=== PATIENT | female | born 1955 | race Caucasian/White ===

== ENCOUNTER 2016-10-21 16:35 | Emergency (ER) | payer OTHER ==
[~2016-10-21] VITALS: Ht 162.6 cm; Wt 74.4 kg
[2016-10-21 17:12] LABS: HEMATOCRIT 42.3 % (36.0-46.0); MCHC 33.1 G/DL (30.0-36.0); MCV 87.8 FL (83-99); MEAN PLAT.VOLUME 10.4 uM^3 (9.5-12.4); PLATELET COUNT 281 K/uL (156-360); RBC DIS.WIDTH-CV 13.3 % (11.8-14.6); RBC DIS.WIDTH-SD 43.2 % (39-53); RED BLOOD COUNT 4.82 M/uL (3.80-5.20); WHITE BLOOD COUNT 8.8 K/uL (4.1-10.2)
[2016-10-21 17:18] LABS: CHLORIDE 107 mEq/L (99-109); POTASSIUM 3.7 mEq/L (3.7-5.4); SODIUM 142 mEq/L (136-147)
[2016-10-21 17:20] LABS: GLUCOSE 151 mg/dL (70-99)
[2016-10-21 17:21] LABS: ANION GAP 13 MEQ/L (2-14)
[2016-10-21 17:22] LABS: TOTAL BILIRUBIN 0.3 mg/dL (0.0-1.0)
[2016-10-21 17:23] LABS: ALKALINE PHOSPHATASE 131 IU/L (3-129)
[2016-10-21 17:24] LABS: GFR ESTIMATE (CALCULATED) 53 mL/min/
[2016-10-21 17:25] LABS: UREA NITROGEN (BUN) 17 mg/dL (9-23)
[2016-10-21 18:00] LABS: ADD MIUA? YES; BILIRUBIN NEGATIVE; BLOOD LARGE; COLOR YELLOW ((YELLOW)); GLUCOSE (STRIP) NEGATIVE; KETONES NEGATIVE; LEUKOCYTES NEGATIVE; NITRITE NEGATIVE; PROTEIN (STRIP) 30; SPECIFIC GRAVITY 1.012 (1.000-1.030); UROBILINOGEN 0.2 MG/DL (0.2-1.0)
[2016-10-21 18:35] LABS: BACTERIA 1+ /HPF; EPITHELIAL CELLS RARE /HPF; MUCUS RARE /LPF; RED BLOOD CELLS TNTC /HPF (0-5); UCUL ADDED? YES; WHITE BLOOD CELLS 0-5 /HPF (0-5)
[2016-10-21] MEDS ORDERED: PERCOCET 5/31 TABLET PO (18:51)
[2016-10-21] MEDS ORDERED: KEFLEX500 MG PO (18:51)
[2016-10-21] MEDS ORDERED: FLOMAX0.4 MG PO (18:51)
[2016-10-21] MEDS ORDERED: ZOFRAN ODT4 MG PO (18:51)
[2016-10-21] MEDS ORDERED: MOTRIN800 MG PO (18:51)
[2016-10-21 19:02] VITALS: BP 120/98
== END 2016-10-21 19:02 | disposition home or self-care (01) ==
LOC: EME 16:35
PROVIDERS: Nurse Practitioner Family
DX: N20.1 Calculus of ureter (principal); K80.20 Calculus of gallbladder without cholecystitis without obstruction; E78.00 Pure hypercholesterolemia, unspecified; E78.5 Hyperlipidemia, unspecified; Z87.891 Personal history of nicotine dependence
CPT/HCPCS: 74177; 80053; 81003; 85027; 87086 GA; 99281; 99284; J1885; J2405; J3010; J7030

== ENCOUNTER 2016-10-28 00:33 | Inpatient (IN) | payer OTHER ==
[~2016-10-28] VITALS: Ht 162.6 cm; Wt 75.2 kg
[~2016-10-28 00:33] MED LIST: FLOMAX0.4 MG PO; KEFLEX500 MG PO; MOTRIN800 MG PO; PERCOCET 5/31 TABLET PO; ZOFRAN ODT4 MG PO
[2016-10-28 01:04] LABS: HEMATOCRIT 37.4 % (36.0-46.0); MCH 29.1 PG (29.0-34.0); MCHC 33.4 G/DL (30.0-36.0); MCV 87.2 FL (83-99); MEAN PLAT.VOLUME 9.8 uM^3 (9.5-12.4); PLATELET COUNT 287 K/uL (156-360); RBC DIS.WIDTH-CV 13.2 % (11.8-14.6); RED BLOOD COUNT 4.29 M/uL (3.80-5.20); WHITE BLOOD COUNT 10.7 K/uL (4.1-10.2)
[2016-10-28 01:11] LABS: CHLORIDE 105 mEq/L (99-109); POTASSIUM 4.1 mEq/L (3.7-5.4); SODIUM 140 mEq/L (136-147)
[2016-10-28 01:13] LABS: GLUCOSE 103 mg/dL (70-99)
[2016-10-28 01:14] LABS: ANION GAP 10 MEQ/L (2-14)
[2016-10-28 01:16] LABS: GFR ESTIMATE (CALCULATED) 28 mL/min/
[2016-10-28 01:17] LABS: UREA NITROGEN (BUN) 22 mg/dL (9-23)
[2016-10-28 01:28] LABS: ADD MIUA? YES; BILIRUBIN NEGATIVE; BLOOD SMALL; COLOR YELLOW ((YELLOW)); GLUCOSE (STRIP) NEGATIVE; KETONES NEGATIVE; LEUKOCYTES NEGATIVE; NITRITE NEGATIVE; PROTEIN (STRIP) 30; SPECIFIC GRAVITY 1.017 (1.000-1.030); UROBILINOGEN 0.2 MG/DL (0.2-1.0)
[2016-10-28 01:34] LABS: BACTERIA NONE SEEN /HPF; EPITHELIAL CELLS RARE /HPF; MUCUS TRACE /LPF; UCUL ADDED? NO; WHITE BLOOD CELLS 0-5 /HPF (0-5)
[2016-10-28 03:03] VITALS: BP 152/72
[2016-10-28 08:45] VITALS: BP 119/63
[2016-10-28 11:46] VITALS: BP 152/80
[2016-10-28 14:55] VITALS: BP 160/78
[2016-10-28] MEDS ORDERED: ZYBAN 150 MG T150 MG PO (17:06)
[2016-10-28] MEDS ORDERED: VENLAFAXINE HC150 MG PO (17:08)
[2016-10-28] MEDS ORDERED: CRESTOR40 MG PO (17:10)
[2016-10-28] MEDS ORDERED: ZETIA10 MG PO (17:17)
[2016-10-28] MEDS ORDERED: VALACYCLOVIR1000 MG PO (17:20)
[2016-10-28] MEDS ORDERED: NEXIUM40 MG PO (17:22)
[2016-10-28] MEDS ORDERED: WELLBUTRIN XL150 MG PO (21:15)
[2016-10-28] MEDS ORDERED: PROTONIX40 MG PO (21:15)
[2016-10-28] MEDS ORDERED: PROAIR HFA8.5 GM IH (21:16)
[2016-10-28] MEDS ORDERED: CENTRUM SILVER1 EAC4 PO (21:16)
[2016-10-28] MEDS ORDERED: LO-DOSE ASPIRIN81 M2 PO (21:17)
[2016-10-28] MEDS ORDERED: PEPCID20 MG PO (21:18)
[2016-10-28] MEDS ORDERED: ZYRTEC10 M3 PO (21:18)
[2016-10-28] MEDS ORDERED: HAIR, SKIN & N1 EAC1 PO (21:19)
[2016-10-28 23:00] VITALS: BP 169/79
[2016-10-29 06:40] LABS: ANION GAP 7 MEQ/L (2-14); CHLORIDE 107 MEQ/L (99-109); GFR ESTIMATE (CALCULATED) 37 mL/min/; GLUCOSE 87 mg/dL (70-99); POTASSIUM 4.2 MEQ/L (3.7-5.4); SAMPLE HEMOLYSIS CHECK 0; SAMPLE ICTERIC CHECK 0; SAMPLE LIPEMIA CHECK 0; SODIUM 142 MEQ/L (136-147); UREA NITROGEN (BUN) 13 mg/dL (9-23)
[2016-10-29 07:08] VITALS: BP 150/69
[2016-10-29] MEDS ORDERED: ENDOCET 5-3251 EACH PO (10:38)
[2016-10-29] MEDS ORDERED: TAMSULOSIN HCL0.4 MG PO (10:38)
[2016-10-29 16:08] VITALS: BP 140/72
[2016-10-29 22:30] VITALS: BP 153/79
[2016-10-30 07:26] LABS: ANION GAP 7 MEQ/L (2-14); CHLORIDE 108 MEQ/L (99-109); GFR ESTIMATE (CALCULATED) 53 mL/min/; GLUCOSE 96 mg/dL (70-99); SAMPLE HEMOLYSIS CHECK 0; SAMPLE ICTERIC CHECK 0; SAMPLE LIPEMIA CHECK 0; SODIUM 142 MEQ/L (136-147); UREA NITROGEN (BUN) 14 mg/dL (9-23)
[2016-10-30 07:28] VITALS: BP 152/84
== END 2016-10-30 11:42 | disposition home or self-care (01) | DRG 694 ==
LOC: EME 00:33 → EDOF 02:05 → ENRESERV 02:06 → 5WEST 02:57 → ENRESERV 10:25 → 5EAST 14:43
PROVIDERS: Hospitalist; Physician Assistant; Physician Assistant Medical
DX: N13.2 Hydronephrosis with renal and ureteral calculous obstruction (principal); N17.9 Acute kidney failure, unspecified; E86.0 Dehydration; M85.80 Other specified disorders of bone density and structure, unspecified site; M54.5 Low back pain; E78.5 Hyperlipidemia, unspecified; K59.00 Constipation, unspecified; Z87.442 Personal history of urinary calculi; Z87.891 Personal history of nicotine dependence; Z82.49 Family history of ischemic heart disease and other diseases of the circulatory system; Z80.1 Family history of malignant neoplasm of trachea, bronchus and lung
CPT/HCPCS: 74000; 74020; 80048; 81003; 85027; 99202; 99281; 99285; J1644; J1885; J2405; J3010; J7030; J7040

== ENCOUNTER 2016-12-28 05:58 | Day surgery (SDC) | payer OTHER ==
[~2016-12-28] VITALS: Ht 162.6 cm; Wt 68.0 kg
[~2016-12-28 05:58] MED LIST changes: +CENTRUM SILVER1 EAC4 PO; +CRESTOR40 MG PO; +ENDOCET 5-3251 EACH PO; +HAIR, SKIN & N1 EAC1 PO; +LO-DOSE ASPIRIN81 M2 PO; +NEXIUM40 MG PO; +PEPCID20 MG PO; +PROAIR HFA8.5 GM IH; +PROTONIX40 MG PO; +TAMSULOSIN HCL0.4 MG PO; +VALACYCLOVIR1000 MG PO; +VENLAFAXINE HC150 MG PO; +WELLBUTRIN XL150 MG PO; +ZETIA10 MG PO; +ZYBAN 150 MG T150 MG PO; +ZYRTEC10 M3 PO
[2016-12-28 07:12] VITALS: BP 137/91
[2016-12-28 11:05] VITALS: BP 144/78
[2016-12-28 11:39] VITALS: BP 155/71
== END 2016-12-28 11:50 | disposition home or self-care (01) ==
LOC: SDC 05:58
PROVIDERS: Urology
DX: N20.1 Calculus of ureter (principal); E78.5 Hyperlipidemia, unspecified; Z87.442 Personal history of urinary calculi; K21.9 Gastro-esophageal reflux disease without esophagitis; Z86.19 Personal history of other infectious and parasitic diseases; Z87.891 Personal history of nicotine dependence; Z79.82 Long term (current) use of aspirin; Z82.49 Family history of ischemic heart disease and other diseases of the circulatory system; Z80.9 Family history of malignant neoplasm, unspecified
CPT/HCPCS: 82365 90; C2625; J0330; J0690; J1100; J1885; J2250; J2310; J2405; J3010; J7050